=== PATIENT | male | born 1955 | race Caucasian/White ===

== ENCOUNTER 2017-07-19 14:06 | Outpatient (CLI) | payer BC ==
[~2017-07-19] VITALS: Ht 165.1 cm; Wt 74.8 kg
[2017-07-19] MEDS ORDERED: OMEP20TA7 PO (14:19)
[2017-07-19] MEDS ORDERED: MAGN250T13 PO (14:19)
[2017-07-19] MEDS ORDERED: METO-333 PO (14:19)
[2017-07-19] MEDS ORDERED: MULT-974 PO (14:19)
== END 2017-07-19 14:32 ==
LOC: PREOP 14:06
PROVIDERS: ATTEND Podiatrist Foot & Ankle Surgery
DX: Z01.818 Encounter for other preprocedural examination (principal); M20.21 Hallux rigidus, right foot

== ENCOUNTER 2017-07-31 08:25 | Day surgery (SDC) | payer BC ==
[~2017-07-31] VITALS: Ht 165.1 cm; Wt 74.8 kg
[~2017-07-31 08:25] MED LIST: MAGN250T13 PO; METO-333 PO; MULT-974 PO; OMEP20TA7 PO
[2017-07-31] MEDS ORDERED: FAMOTIDINE 20MG/2ML IV (PEPCID) IV ONE (08:45)
[2017-07-31] MEDS ORDERED: ceFAZolin INJECTION 1,000 MG in NS (IVPB) 50 ML IV ONE (08:45)
[2017-07-31] MEDS ORDERED: BUPIVACAINE 0.5% 30 ML (SENSORCAINE) VIAL ONE (08:49)
[2017-07-31] MEDS ORDERED: DEXAMETHASONE 10 MG/ML (DECADRON) 1 ML VIAL ONE (09:06)
[2017-07-31] MEDS ORDERED: SEVOFLURANE (ULTANE) 15 ML INHAL SOLN ONE ×7 (09:06→10:38)
[2017-07-31] MEDS ORDERED: proPOfol 200 MG/20 ML (DIPRIVAN) VIAL IV ONE (09:06)
[2017-07-31] MEDS ORDERED: LIDOCAINE PF 2% 5 ML (XYLOCAINE) VIAL ONE (09:06)
[2017-07-31] MEDS ORDERED: ONDANSETRON 4 MG/2 ML (SDV) Z0FRAN ONE (09:06)
[2017-07-31] MEDS ORDERED: MIDAZOLAM 2 MG/2 ML (VERSED) VIAL ONE (09:07)
[2017-07-31] MEDS ORDERED: fentaNYL INJECTION 100 MCG/2 ML AMP ONE (09:07)
[2017-07-31] MEDS: LACTATED RINGERS 1,000 ML IV PRN ×2 (09:10→10:00)
[2017-07-31 09:17] VITALS: BP 150/92
--- NOTE | 2017-07-31 09:23 | Progress Note-Pre Operative ---
Pre-Operative Progress Note H&P Reviewed The H&P was reviewed, patient examined and no changes noted. Date Seen by Provider: Jul 31, 2017 Time Seen by Provider: :22 Date H&P Reviewed: Jul 31, 2017 Time H&P Reviewed: :22 Pre-Operative Diagnosis: Hallux Rigidus right ELIN OLIVAREZ DPM Jul 31, 2017 09:23
[2017-07-31] MEDS ORDERED: LACTATED RINGERS 1,000 ML IV SCH (10:59)
--- NOTE | 2017-07-31 10:59 | Progress Note-Post Operative ---
Post-Operative Progess Note Surgeon (s)/Branch Director (s) Surgeon ELIN OLIVAREZ DPM Branch Director: none Pre-Operative Diagnosis Hallux Rigidus right Post-Operative Diagnosis same Procedure & Operative Findings Date of Procedure 07/31/17 Procedure Performed/Findings Arthrodesis to the right 1st MTPJ Anesthesia Type General Estimated Blood Loss Estimated blood loss (mL): minimal Specimens/Packing Specimens Removed none ELIN OLIVAREZ DPM Jul 31, 2017 10:59 am
[2017-07-31] MEDS ORDERED: CEPH500C PO (11:03)
[2017-07-31] MEDS ORDERED: ACHD5005 PO (11:03)
[2017-07-31] MEDS ORDERED: ONDANSETRON 4 MG/2 ML (SDV) Z0FRAN IVP PRN (11:15)
[2017-07-31] MEDS ORDERED: morphine INJ 10 MG/ML 1ML (SYR OR VIAL) IVP PRN (11:15)
[2017-07-31 11:55] VITALS: BP 136/85
--- NOTE | 2017-07-31 12:23 | Anesthesia-General Post-Op ---
General Patient Condition Mental Status/LOC: Same as Preop Cardiovascular: Satisfactory Nausea/Vomiting: Absent Respiratory: Satisfactory Pain: Controlled Complications: Absent Post Op Complications Complications None Follow Up Care/Instructions Patient Instructions None needed. Anesthesia/Patient Condition Patient Condition Patient is doing well, no complaints, stable vital signs, no apparent adverse anesthesia problems. No complications reported per nursing. VIKAS RAHMAN CRNA Jul 31, 2017 12:23
[2017-07-31 12:25] VITALS: BP 142/88
--- NOTE | 2017-07-31 12:50 | Diagnostic Imaging Report ---
EXAMINATION: Right foot at 1116 hours. INDICATION: Postop. TECHNIQUE/COMPARISON: AP and lateral views were obtained. There are no prior studies available for comparison. FINDINGS: There are postoperative changes involving the first ray. Specifically, there is an orthopedic plate and screw fixation device along the anterior aspect of the first metatarsal/phalangeal joint. The orthopedic hardware appears to be in good position. There is some gas in the soft tissues about the first metatarsal/phalangeal joint. There is no fracture or acute bony abnormality evident. There is a small calcaneal spur. IMPRESSION: There are postoperative changes involving the first ray as described above. There is no acute bony abnormality noted. Dictated by: Dictated on workstation # [id number]
[2017-07-31 12:55] VITALS: BP 143/86
--- NOTE | 2017-07-31 13:06 | Physical Therapy Progress Note ---
Therapy Progress Note PT in for assessment. Family present. Family and patient report all equipment (knee scooter, wedge, etc) is established and patient installed a ramp prior to surgery. Review exercises of ankle rotation and heel contact for balance only. All voice understanding. No skilled PT indicated. 1 visit JUAN DAVID CATALAN PT Jul 31, 2017 13:06
--- NOTE | 2017-07-31 22:17 | OPERATIVE REPORT ---
DATE OF SERVICE: 07/31/2017 SURGEON: Celeste Olivarez DPM PREOPERATIVE DIAGNOSIS: Hallux rigidus, right. POSTOPERATIVE DIAGNOSIS: Hallux rigidus, right. PROCEDURE: Arthrodesis right first metatarsophalangeal joint. WOUND CLASS: Clean. ANESTHESIA: General. HEMOSTASIS: Pneumatic thigh tourniquet at 250 mmHg. INDICATIONS: This 62-year-old male presents complaining of painful right great toe joint for several months, progressive pain, has initiated a conversation about surgical intervention. After risks and complications were discussed, he is willing to proceed. No guarantees were extended to the patient. He did have several months of failed conservative treatment. DESCRIPTION OF PROCEDURE: The patient was brought back to the operative table, placed in secure supine position. Appropriate time out was performed. Pneumatic thigh tourniquet was placed on the right lower extremity over several layers of padding. The right foot was then prepped and draped in normal sterile manner. The right foot was then elevated and allowed to exsanguinate after which the tourniquet was inflated to 250 of mmHg. Attention was then directed to the dorsal aspect of the right first metatarsophalangeal joint where a 6 cm longitudinal linear incision was created. The incision was deepened in the same plane with great care to identify and retract all vital neurovascular structures. All the necessary blood vessels were cauterized as encountered. The incision was deepened down to the capsular tissue where a longitudinal capsulotomy was performed. This exposed the hypertrophic dorsal, medial and lateral eminence to the first metatarsal head and base of the proximal phalanx. Utilizing the power sagittal saw and rongeur, these bony eminences were reduced significantly. When inspecting the cartilage, there was less than 20% of the articular cartilage remaining to the head of the first metatarsal and about 30% to the plantar aspect of the base of the proximal phalanx. It was then decided that an arthrodesis would be in the patient's best interest. Utilizing a cup and cone, the head of the first metatarsal base of the proximal phalanx were then prepped for a Trilliant arthrodesis with a dorsal plate. Utilizing a K-wire, multiple fenestrations were performed to the head of the first metatarsal and base of the proximal phalanx. The wound was flushed with copious amounts of normal saline. A guidewire was driven from distal medial to proximal lateral from the base of the proximal phalanx to the head of the first metatarsal area securing the digit in a slightly dorsiflexed and lateral deviated orientation. Next, utilizing standard technique, a Trilliant Gridlock Plating System was performed with 3.0 screws. The most distal two screws were 12 mm in length. The compression screw was driven from distal medial to proximal lateral across the arthrodesis site. It was a 3-0 cannulated screw of 28 mm in length. Good bony apposition was appreciated at this time. A nonlocking screw of 18 mm was then performed to the most proximal hole of the dorsal plate followed by a 22 and 20 mm screws. Another 20 mm screw was placed in the distal aspect of the plate for a total of six dorsal screws to the Gridlock Plating System. The wound was flushed with copious amounts of normal saline. Good anatomical position was then appreciated intraoperatively. The wound was then closed in layers. Deep closure was performed with 3-0 Vicryl, superficial with 4-0 Vicryl, skin closed with 4-0 Prolene in a horizontal mattress type stitch. Preoperatively, he was injected with 10 mL of 0.5% Marcaine plain. Postoperatively, he was injected with the same amount of 0.5% Marcaine plain in a Estrada block. The patient had a Betadine soaked Adaptic applied to the wound, sterile 4 x 4, sterile Kerlix all secured with a Coban wrap. The tourniquet was released noting appropriate cap refill time to all digits of the right foot. The patient tolerated the anesthesia and procedure well and was transferred from the operating room to the recovery area with vital signs stable and vascular status intact to all digits of the right foot. He was given instructions to be partial weightbearing on the right lower extremity and follow up in my office in 10 days period of time or sooner if necessary. Job ID: [id number] DocumentID: [id number] Dictated Date: 07/31/2017 11:12:44 Case Briefer Date: 07/31/2017 20:27:25 Dictated By: CELESTE OLIVAREZ DPM
== END 2017-07-31 13:15 | disposition home or self-care (01) ==
LOC: SDC 08:25
PROVIDERS: ATTEND Podiatrist Foot & Ankle Surgery
DX: M20.21 Hallux rigidus, right foot (principal); I10 Essential (primary) hypertension; F41.9 Anxiety disorder, unspecified; K21.9 Gastro-esophageal reflux disease without esophagitis; Z79.899 Other long term (current) drug therapy; Z88.5 Allergy status to narcotic agent; Z88.1 Allergy status to other antibiotic agents; Z88.8 Allergy status to other drugs, medicaments and biological substances
CPT/HCPCS: 73620; 87081